=== PATIENT | female | born 1995 | race Caucasian/White ===

== ENCOUNTER 2017-01-31 07:53 | Emergency (ER) | payer SELFPAY ==
[2017-01-31] MEDS ORDERED: Ketorolac Tromethamine 30 MG/ML VIAL ONE (08:06)
[2017-01-31 08:13] LABS: Bilirubin Negative (Negative); Blood, Urine Negative (Negative); Glucose, Urine (Dipstick) Negative (Negative); Ketone, Urine Trace mg/dL (Negative); Nitrite Negative (Negative); Protein, Urine (Dipstick) Negative (Neg-Trace); Urobilinogen 0.2 mg/dL (0.2-1.0)
[2017-01-31 08:20] LABS: Bacteria/HPF Rare-Few HPF (None Seen); RBC/HPF 0-3 HPF (0-3); Squamous Epithelial 0-3 HPF (0-3); WBC/HPF 21-50 HPF (0-3)
[2017-01-31 08:37] LABS: ALT (SGPT) 20 U/L (8-55); AST (SGOT) 17 U/L (5-34); Alkaline Phosphatase 76 U/L (40-150); Anion Gap 13 mmol/L (10-20); BUN (Urea Nitrogen) 14 mg/dL (7.0-18.7); Calc. Creatinine Clearance 0 mL/min (70-130); Calcium 9.3 mg/dL (7.8-10.44); Carbon Dioxide 24 mmol/L (22-29); Chloride 107 mmol/L (98-107); Estimated GFR-MDRD Greater than 90; Globulin 2.8 g/dL (2.4-3.5); Lipase 9 U/L (8-78); Protein, Total 7.3 g/dL (6.0-8.3)
[2017-01-31 08:38] LABS: #Basophils 0.1 thou/uL (0.0-0.2); #Eosinphils 0.4 thou/uL (0.0-0.7); #Lymphocytes 2.3 thou/uL (1.20-3.40); #Monocytes 0.5 thou/uL (0.11-0.59); #Neutrophils 3.3 thou/uL (1.40-6.50); %Basophils 1.5 % (0.0-1.0); %Eosinophils 5.6 % (0.0-10.0); %Lymphocytes 34.7 % (21.0-51.0); %Monocytes 7.2 % (0.0-10.0); Hematocrit 40.1 % (36.0-47.0); Mean Platelet Volume 10.8 fL (7.4-10.4); Red Blood Cell (RBC) Count 4.66 mill/uL (4.20-5.40); White Blood Cell (WBC) Count 6.5 thou/uL (4.8-10.8)
--- NOTE | 2017-01-31 09:04 | CT ---
CT ABDOMEN AND PELVIS WITHOUT IV CONTRAST: Date: 01/31/17 HISTORY: Right-sided flank pain with onset of symptoms 1-2 hours ago. History of kidney stones. Patient with nausea, vomiting, and diarrhea for the past 2 days. COMPARISON: None available. FINDINGS: Dome of the liver is excluded from view, but the remainder of the liver demonstrates grossly normal nonenhanced CT appearance. Visualized lung bases, spleen, pancreas, bilateral adrenal glands, kidney s, and uterus demonstrate a grossly normal nonenhanced CT appearance. Urinary bladder is decompresse d. There is low density structure seen in the right adnexa which may represent a small right ovarian cyst or dominant follicle. Left adnexal structures have a normal appearance. The appendix is visualized and normal in caliber. No renal or ureteral calculi seen bilaterally. There is no free fluid or fluid collection seen in the abdomen or pelvis. Transitional vertebra is seen at the lumbosacral junction and there is partial sacralization of the right aspect of the L5 vertebral body with pseudoarticulation of the lateral mass of L5 on the right with S1. IMPRESSION: 1. No renal or ureteral calculi are seen bilaterally. 2. No CT evidence of appendicitis. POS: [facility]
== END 2017-01-31 09:05 | disposition home or self-care (01) ==
LOC: SCSER 07:53
DX: N39.0 Urinary tract infection, site not specified (principal)
CPT/HCPCS: 74176; 80053; 81003; 81015; 81025; 83690; 85025; 87086; 96361; 96374; J1885